=== PATIENT | male | born 1975 | race Caucasian/White ===

== ENCOUNTER 2023-11-27 09:51 | Outpatient (CLI) | payer MEDICAID, SELFPAY ==
--- NOTE | 2023-11-27 09:57 | MR_ITS ---
WS: [id number] MRI HEAD WITH CONTRAST WITH ATTENTION TO THE INTERNAL AUDITORY CANALS TECHNIQUE: Sagittal T1, T2 axial, T2 axial flair, axial susceptibility weighted imaging, axial diffus ion weighted images, and coronal T2 images were obtained. Pre and post T1 axial and post T1 coronal i mages. ADC and FSPGR images. Post gadolinium images with attention to the internal auditory canals. A xial fiesta imaging. CLINICAL INFORMATION: SENSORINEURAL HEARING LOSS, BILATERAL COMPARISON: None. FINDINGS: Proximal 7th and eighth cranial nerves are normal in appearance. Normal trigeminal nerve root entry z ones. No evidence of enhancing IAC or CP angle mass. No abnormal gadolinium enhancement. Normal visualized dural venous sinuses. No evidence of restricted diffusion to suggest acute ischemia. No hemosiderin on the susceptibly weighted images. Moderate sma ll vessel changes. Moderate parenchymal volume loss. Large area of chronic ischemia in the LEFT tempo ral and occipital lobes with encephalomalacia and gliosis. Chronic infarct RIGHT parasagittal occipit al lobe. Tiny chronic lacunar infarcts in the cerebellum bilaterally. Paranasal sinuses and mastoid air cells are well aerated. Loss of the normal RIGHT ICA flow void with poor enhancement in the intracranial RIGHT ICA with high- grade stenosis or occlusion. Recommend further evaluation with CTA. No prior comparisons. This may be due to dissection. MR/MR iac's wo/w con* [id number] IMPRESSION: 1. No evidence of restricted diffusion to suggest acute ischemia. 2. Proximal 7th and 8th cranial nerves are normal in appearance. No evidence o f enhancing IAC or CP angle mass. 3. Normal trigeminal nerve root entry zones. 4. High-grade stenosis or occlusion of the RIGHT ICA at the skull base. If acu te onset, this may be due to dissection in a patient this age. Recommend CTA he ad neck. 5. Moderate small vessel changes with moderate parenchymal volume loss. 6. Large area of chronic ischemia involving the LEFT temporal lobe extending i nto the LEFT occipital lobe with encephalomalacia and gliosis. Associated unique ar necrosis. 7. Chronic infarct RIGHT parasagittal occipital lobe. 8. Multiple tiny chronic lacunar infarcts in the cerebellum bilaterally. Notified BART Taylor at 11/27/2023 1:06 PM.
[2023-11-27] MEDS: gadobenate dimeglumine 20 mL vial IV (12:02)
== END 2023-11-27 09:52 | disposition home or self-care (01) ==
LOC: RAD 09:54
PROVIDERS: Visit Provider Otolaryngology
DX: H90.3 Sensorineural hearing loss, bilateral (principal); H93.11 Tinnitus, right ear; I65.21 Occlusion and stenosis of right carotid artery; G31.89 Other specified degenerative diseases of nervous system; I67.82 Cerebral ischemia; G93.9 Disorder of brain, unspecified
CPT/HCPCS: 70553; A9577

== ENCOUNTER 2023-12-12 10:03 | Outpatient (CLI) | payer MEDICAID, SELFPAY ==
--- NOTE | 2023-12-12 10:05 | CT_ITS ---
WS: [id number] CT ANGIOGRAM CEREBRAL ARTERIES HISTORY: OCCLUSION STENOSIS OF R CAROTID ARTERY/TINNITUS, R EAR TECHNIQUE: Pre and postcontrast imaging through the brain. CT angiogram is performed of the cerebral arteries. During arterial injection imaging is obtained from the skull vertex to the skull base in 1. 25 mm imaging. Coronal and sagittal reformats are submitted. Additional multi planar reformats of the cerebral arteries are submitted, MIP imaging also reviewed. All CT scans at [facility] use at least one of these dose optimization techniques: automated exposure control; mA and/or kV adjustme nt per patient size (includes targeted exams where dose is matched to clinical indication); or iterat evon reconstruction. CONTRAST: Omnipaque 350; 100 mL IV. DLP: 1917.52 mGy.cm COMPARISON: MRI 11/27/[address]: No acute intracranial hemorrhage. Reidentified is the chronic infarct with volum e loss involving the LEFT temporal and occipital lobes. Chronic RIGHT parasagittal occipital lobe inf arct. Otherwise mild atrophy. Ventricles are slightly enlarged. Intracranial vertebral arteries: Small caliber distal LEFT vertebral artery through the foramen magnu m but it is patent. Dominant distal RIGHT vertebral artery. Basilar artery: No significant stenosis or occlusion. No aneurysm. Intracranial Internal carotid arteries: There is no contrast noted from the IV injection of the RIGHT intracranial ICA. Good opacification of the LEFT intracranial ICA. Beginning in the supraclinoid RIG HT ICA a small amount of contrast is noted indicating an intact bill moore's slough of Wang. Middle cerebral arteries: Contrast opacification is identified in each middle cerebral artery. Slight ly smaller RIGHT MCA. No thrombus or occlusion. LEFT MCA is also patent. Beginning distal to the LEFT M2 segments decreasing arterial opacification and distribution due to the large chronic infarct in t his region. Anterior cerebral arteries and ACOM: Well-opacified. Widely patent A1 segments contributing to blood flow in the RIGHT MCA. Posterior cerebral arteries and PCOM's: Posterior cerebral arteries are both identified with the RIGH T being slightly greater in size than the LEFT. The distal LEFT posterior cerebral artery with limite d enhancement due to the chronic infarct. There is no acute thrombus. Both posterior cerebral arterie s are identified with the RIGHT being larger than the LEFT. Small filling defect in the straight sinus is probably an arachnoid granulation. There are multiple s mall filling defects in the superior sagittal sinus also. There is no complete occlusion. Suspect jacqui chnoid granulations. Mastoid air cells: Normal. Paranasal sinuses: Normal. Calvarium: Normal. CT/CT angio head [id number] IMPRESSION: 1. 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 Occlusion noted at the sk ull base. Neck CTA was not performed to evaluate the cervical carotid artery. T he occlusion is contiguous and complete to the supraclinoid RIGHT ICA. 2. Intact bill moore's slough of Wang providing blood flow to the RIGHT MCA via the RIGHT A1 segment and RIGHT posterior communicating artery. 3. Paucity of vessels in the distal LEFT MCA and LEFT posterior cerebral arter y due to the chronic infarcts that have been previously described.
[2023-12-12] MEDS: iohexol 350 mg/mL 500 mL Btl (per mL) IV (12:58)
== END 2023-12-12 10:04 | disposition home or self-care (01) ==
LOC: RAD 10:03
PROVIDERS: Visit Provider Otolaryngology
DX: I65.21 Occlusion and stenosis of right carotid artery (principal); H93.11 Tinnitus, right ear; I63.9 Cerebral infarction, unspecified
CPT/HCPCS: 70496

== ENCOUNTER 2023-12-18 06:31 | Outpatient (CLI) | payer MEDICAID, SELFPAY ==
--- NOTE | 2023-12-18 07:04 | CT_ITS ---
WS: [id number] CTA NECK TECHNIQUE: Contrast enhanced CTA of the neck with coronal and sagittal reformatted images and maximum intensity projection (MIP) images. NASCET criteria utilized. CLINICAL INFORMATION: OCCLUSION AND STENOSIS OF RT CAROTID, TINNITUS, RT EAR COMPARISON: None. DLP: 313.[address] scans at [facility] use at least one of these dose optimization techniques: automated e xposure control; mA and/or kV adjustment per patient size (includes targeted exams where dose is matc hed to clinical indication); or iterative reconstruction. FINDINGS: RIGHT: RIGHT common carotid artery is patent. RIGHT ICA is occluded at the origin and remains occlude d to the skull base. Mild atheromatous plaque RIGHT carotid bulb. Moderate to severe stenosis RIGHT p roximal ECA which remains patent. LEFT: LEFT common carotid artery is patent. Mild atheromatous plaque LEFT carotid bulb extending into the ICA. LEFT ICA is patent to the skull base. RIGHT dominant vertebral artery. Tiny hypoplastic LEFT vertebral artery ends in PICA. Mastoid air cells are well aerated. Mild spondylitic changes cervical spine. CT/CT angio neck [id number] IMPRESSION: 1. RIGHT ICA is occluded at the origin and remains occluded to the skull base. . 2. Moderate to severe stenosis RIGHT proximal ECA which remains patent. 3. No significant LEFT ICA stenosis. 4. Mild atheromatous plaque both carotid bulbs. 5. RIGHT dominant vertebral artery. Tiny hypoplastic LEFT vertebral artery whi ch ends in PICA.
[2023-12-18] MEDS: iohexol 350 mg/mL 500 mL Btl (per mL) IV (07:33)
== END 2023-12-18 06:32 | disposition home or self-care (01) ==
LOC: RAD 06:34
PROVIDERS: PCP Internal Medicine; Visit Provider Otolaryngology
DX: I65.21 Occlusion and stenosis of right carotid artery (principal)
CPT/HCPCS: 70498